=== PATIENT | male | born 1940 | race Caucasian/White ===

== ENCOUNTER → 2017-01-08 | Outpatient (CLI) | payer MEDICARE, BC ==
[~2017-01-08] MED LIST: AMLODIPINE BESY10 MG PO; ASPIRIN EC81 M1 PO; ATORVASTATIN CA10 MG PO; DOXAZOSIN MESYLA2 MG PO; HYDROCHLOROTHIA25 MG PO; LOTENSIN20 MG PO; METFORMIN HCL1000 M1 PO; PLETAL100 MG PO; TENORMIN25 MG PO
== END | disposition home or self-care (01) ==
LOC: CLAB 11:39
DX: C61 Malignant neoplasm of prostate (principal)
CPT/HCPCS: 36415; 84153

== ENCOUNTER → 2017-01-28 | Outpatient (CLI) | payer MEDICARE, BC ==
--- NOTE | ~2017-01-28 | US37 ---
[facility] A Service of [facility] RADIOLOGY TEXT RESULTS PATIENT: VICKIE GONG LOCATION: CNIV : 39 UNIT #: [id number] AGE: [address]: Naveen Chaudhary MD SEX: M ORDER DR: [id number] [facility] [address] [facility] [place], [place] [address] [id number] O MR#: [id number] Acc #: [id number] NAME: VICKIE GONG : 1940 SEX: M STUDY DATE/TIME: 01/28/2017 9:12 UNIT: CNIV ROOM: STUDY DESCRIPTION: US Carotid W/Doppler Bilateral Attending Physician: Naveen Chaudhary M.D. Referring Physician: Naveen Chaudhary M.D. Ordering Physician: Naveen Chaudhary M.D. Primary Care Physician: Robin Boswell M.D. MEDICAL IMAGING REPORT This report is preliminary unless electronic signature is present EXAM Bilateral carotid duplex HISTORY Carotid artery stenosis FINDINGS Duplex imaging in the carotid arteries was performed. The right common carotid artery is patent. Heterogeneous hyperechoic plaque is seen in the origin of the internal carotid artery and external carotid arteries. Velocity in the right common carotid is 136, internal is 193 x 54, in the proximal portion, 194 x 30 in the midportion and 20 x 22 in the distal portion. External carotid artery velocity is 185 cm/sec. Right ICA:CCA ratio is 1.4. On the left side hyperechoic plaque is seen in the left common internal and external carotid arteries. Velocity in the left common carotid is 144, internal is 147 proximally, 165 midportion and 67 distally. External is 273 cm/sec. Left ICA:CCA ratio is 1.1. Antegrade flow is seen in the right and left vertebral arteries. IMPRESSION Plaque with 50% to 69% stenosis is seen in the right and left internal carotid arteries. Increased velocities are seen also in the common carotid arteries and correlation is recommended. Antegrade flow is seen in the right and left vertebral arteries. Dictated by... Naveen Chaudhary M.D. [facility] A Service of [facility] RADIOLOGY TEXT RESULTS PATIENT: VICKIE GONG LOCATION: CNIV : 39 UNIT #: [id number] AGE: [address]: Naveen Chaudhary MD SEX: M ORDER DR: THIS IS AN ELECTRONICALLY VERIFIED REPORT Naveen Chaudhary M.D. at 01/31/2017 10:49 AM [place] TD: 01/29/2017 08:46 JOB #: [id number] MEDICAL IMAGING REPORT Page 1 of 1 COPY
== END | disposition home or self-care (01) ==
LOC: CNIV 08:33
DX: I77.9 Disorder of arteries and arterioles, unspecified (principal); I65.23 Occlusion and stenosis of bilateral carotid arteries
CPT/HCPCS: 93880